=== PATIENT | female | born 1965 | race Caucasian/White ===

== ENCOUNTER 2018-04-25 05:22 | Day surgery (SDC) | payer BC ==
[2018-04-23 17:00] LABS: BASOPHILS % (AUTO) 0.4 % (0-1); EOSINOPHILS # (AUTO) 0.2 X10'3 (0-0.9); EOSINOPHILS % (AUTO) 1.9 % (0-6); LYMPHOCYTES % (AUTO) 19.9 % (21-51); MEAN CORPUSCULAR HEMOGLOBIN 28.6 PG (27.0-31.0); MEAN CORPUSCULAR HGB CONC 33.8 % (33.0-36.5); MEAN CORPUSCULAR VOLUME 84.7 FL (78-98); MEAN PLATELET VOLUME 9.4 FL (7.4-10.4); MONOCYTES # (AUTO) 0.5 X10'3 (0-0.9); MONOCYTES % (AUTO) 5.5 % (2-12); NEUTROPHILS # (AUTO) 7.1 X10'3 (1.8-7.7); NEUTROPHILS % (AUTO) 72.3 % (42-75); PRE OP HEMATOCRIT 37.1 % (35.0-45.0); PRE OP HEMOGLOBIN 12.6 g/dL (12.0-16.0); PRE OP PLATELET COUNT 281 X10'3 (140-440); RED BLOOD COUNT 4.39 X10'6 (4.20-5.60); RED CELL DISTRIBUTION WIDTH 13.3 % (11.5-14.5)
[2018-04-23 17:11] LABS: CLARITY,URINE SLIGHTLY CLOUDY (Clear); COLOR,URINE YELLOW (Yellow); GLUCOSE, URINE NEGATIVE (Neg); KETONES,URINE NEGATIVE (Neg); LEUKOCYTE ESTERASE ,URINE NEGATIVE (Neg); NITRITES, URINE NEGATIVE (Neg); OCCULT BLOOD,URINE NEGATIVE (Neg); PROTEIN,URINE TRACE mg/dl (Neg); UROBILINOGEN,URINE 0.2 E.U/dL (0.2-1.0)
[2018-04-23 17:11] LABS: PRE OP INR 0.9 INR; PRE OP PROTIME 9.6 SECONDS (9.0-12.0)
[2018-04-23 17:15] LABS: UA COLLECTION TYPE CLN CATCH MIDSTREAM
[2018-04-23 17:19] LABS: HYALINE CASTS 0-3 /LPF (NEGATIVE); MUCUS STRANDS MODERATE /LPF (Neg); SQUAMOUS EPITHELIAL CELL,UR FEW /LPF (FEW)
[2018-04-23 17:20] LABS: ALBUMIN 3.4 G/DL (3.4-5.0); ALBUMIN/GLOBULIN RATIO 0.9 (1.1-1.5); ALKALINE PHOSPHATASE 36 IU/L (46-116); BLOOD UREA NITROGEN 14 MG/DL (7-18); BUN/CREATININE RATIO 16.3 (6.6-38.0); CHLORIDE 104 MMOL/L (99-107); CREATININE 0.86 MG/DL (0.40-0.90); PRE OP ALT 15 U/L (30-65); PRE OP ANION GAP 9 (8-16); PRE OP AST 14 U/L (10-37); PRE OP BILIRUB, TOTAL 0.2 MG/DL (0.0-1.0); PRE OP GLUCOSE 85 MG/DL (70-104); PRE OP POTASSIUM 3.6 MMOL/L (3.4-5.1); PRE OP SODIUM 139 MMOL/L (135-145); TOTAL CARBON DIOXIDE 26.2 MMOL/L (24-32); eGFR 69 ML/MIN
[2018-04-23 17:20] LABS: BACTERIA,URINE 1+ /HPF (Neg); RBC,URINE 0-2 /HPF (0-2); WBC,URINE 0-4 /HPF (0-4)
[2018-04-24 07:22] LABS: URINE HCG NEGATIVE (NEG)
[~2018-04-25] VITALS: Ht 162.6 cm; Wt 67.4 kg
[2018-04-25] VITALS (19 sets, daily range): BP systolic 105–129; BP diastolic 59–80
[~2018-04-25 05:22] MED LIST: CRAN200C PO; CYAN250014; FLUT16SP2 BOTHNARES; GLUC-133 PO; MULT-1085 PO; POTA10TA19 PO; VITA100D6 PO
[2018-04-25] MEDS ORDERED: famotidine 20mg tablet PO ONE (05:30)
[2018-04-25] MEDS ORDERED: ceFOXitin 2 GM ADDvantage bag 100 ML IV ONE (05:30)
[2018-04-25] MEDS ORDERED: LIDOcaine 1% (10mg/ml) 2ml vial ONE (06:04)
[2018-04-25] MEDS: ringers solution, lacted 1,000 ML IV SCH ×2 (06:07→11:36)
[2018-04-25] MEDS ORDERED: epiNEPHrine 1 mg/ml inj ONE (06:47)
[2018-04-25] MEDS ORDERED: BUPIVAcaine/PF 2.5mg/ml (0.25%) 10ml vial ONE (06:48)
[2018-04-25] MEDS ORDERED: vasoPRESSIN 20 units/ml inj. ONE (06:48)
[2018-04-25] MEDS ORDERED: neomy sulf/polymyxin B sulf. GU irrigation 1ml amp IR ONE (07:10)
[2018-04-25] MEDS ORDERED: fentaNYL /PF 50mcg/ml 5ml ampule ONE (07:21)
[2018-04-25] MEDS ORDERED: midazolam 2 mg/2 ml injection ONE (07:21)
[2018-04-25] MEDS ORDERED: glycopyrrolate 0.2mg/ml inj ONE (07:25)
[2018-04-25] MEDS ORDERED: ondansetron/PF 4mg/2ml inj ONE (07:25)
[2018-04-25] MEDS ORDERED: neostigmine methylsulfate 1 MG/ML 10ml vial ONE (07:25)
[2018-04-25] MEDS ORDERED: sevoflurane 250ml liquid IH ONE (07:25)
[2018-04-25] MEDS ORDERED: dexamethasone sod phosphate 4mg/ml inj. ONE (07:38)
[2018-04-25] MEDS ORDERED: LIDOcaine 2% (20mg/ml) 5ml vial ONE (07:42)
[2018-04-25] MEDS ORDERED: rocuronium 10mg/ml inj IV ONE ×2 (07:42→09:24)
[2018-04-25] MEDS ORDERED: propofol inj 20 ML IV ONE (07:42)
[2018-04-25] MEDS ORDERED: ringers solution, lacted 1,000 ML IV SCH (08:08)
[2018-04-25] MEDS ORDERED: meperidine/PF 25mg/ml syringe IV PRN ×3 (08:10)
[2018-04-25] MEDS ORDERED: morphine 4 MG/ML inj SYRINge IV PRN ×2 (08:10)
[2018-04-25] MEDS ORDERED: ondansetron/PF 4mg/2ml inj IV PRN ×2 (08:10→09:40)
[2018-04-25] MEDS ORDERED: proCHLORperazine 10 MG/2 ml inj IV PRN (08:10)
[2018-04-25] MEDS ORDERED: normal saline 500ml IV soln 500 ML IV PRN (09:40)
[2018-04-25] MEDS ORDERED: diphenhydrAMINE 50 mg/ml inj IV PRN (09:40)
[2018-04-25] MEDS ORDERED: HYDROcodone/acetaminophen 10/325mg tab PO PRN (09:40)
[2018-04-25] MEDS ORDERED: metoclopramide 5 mg/ml inj IV PRN (09:40)
[2018-04-25] MEDS ORDERED: LORazepam 2 mg/ml vial IV PRN (09:40)
[2018-04-25] MEDS ORDERED: mag hydrox/Alum hydrox/simeth 30ml oral suspension PO PRN (09:40)
[2018-04-25] MEDS ORDERED: temazepam 15mg capsule PO PRN (09:40)
[2018-04-25] MEDS ORDERED: meperidine/PF 50mg/ml syringe ONE (09:43)
[2018-04-25] MEDS: ketorolac trometh. 30mg/ml inj. IV PRN ×2 (11:42→17:48)
[2018-04-25] MEDS: simethicone 80mg chew tab PO SCH ×2 (12:22→17:48)
[2018-04-25] MEDS: HYDROcodone/acetaminophen 10/325mg tab PO PRN ×2 (12:24→22:08)
[2018-04-25] MEDS: normal saline 1000ml 1,000 ML IV SCH (17:37)
[2018-04-25] MEDS: docusate sod 100mg capsule PO SCH (19:53)
[2018-04-26] VITALS: BP 116/66
[2018-04-26] MEDS: ketorolac trometh. 30mg/ml inj. IV PRN (01:48)
[2018-04-26] MEDS: ringers solution, lacted 1,000 ML IV SCH ×2 (02:56→09:17)
[2018-04-26] MEDS: normal saline 1000ml 1,000 ML IV SCH (03:14)
[2018-04-26 05:18] LABS: BASOPHILS # (AUTO) 0.1 X10'3 (0-0.2); BASOPHILS % (AUTO) 1.1 % (0-1); EOSINOPHILS # (AUTO) 0.1 X10'3 (0-0.9); EOSINOPHILS % (AUTO) 1.1 % (0-6); HEMATOCRIT 31.7 % (35.0-45.0); HEMOGLOBIN 10.9 g/dl (12.0-16.0); LYMPHOCYTES # (AUTO) 1.8 X10'3 (1.1-4.8); LYMPHOCYTES % (AUTO) 17.2 % (21-51); MEAN CORPUSCULAR HEMOGLOBIN 28.8 PG (27.0-31.0); MEAN CORPUSCULAR HGB CONC 34.4 % (33.0-36.5); MEAN CORPUSCULAR VOLUME 83.7 FL (78-98); MEAN PLATELET VOLUME 9.2 FL (7.4-10.4); MONOCYTES # (AUTO) 0.9 X10'3 (0-0.9); MONOCYTES % (AUTO) 8.6 % (2-12); NEUTROPHILS # (AUTO) 7.4 X10'3 (1.8-7.7); PLATELET COUNT 207 X10'3 (140-440); RED BLOOD COUNT 3.78 X10'6 (4.20-5.60); RED CELL DISTRIBUTION WIDTH 13.2 % (11.5-14.5); WHITE BLOOD COUNT 10.3 X10'3 (4.5-11.0)
[2018-04-26 05:35] LABS: ALBUMIN 2.5 G/DL (3.4-5.0); ANION GAP 9 (8-16); BLOOD UREA NITROGEN 10 MG/DL (7-18); BUN/CREATININE RATIO 11.6 (6.6-38.0); CALCIUM 7.3 MG/DL (8.5-10.1); CHLORIDE 107 MMOL/L (99-107); CREATININE 0.86 MG/DL (0.40-0.90); GLUCOSE 99 MG/DL (70-104); POTASSIUM 3.5 MMOL/L (3.5-5.1); SODIUM 139 MMOL/L (135-145); TOTAL CARBON DIOXIDE 23.2 MMOL/L (24-32); eGFR 69 ML/MIN
[2018-04-26 07:19] VITALS: BP 109/61
[2018-04-26] MEDS ORDERED: enoxaparin 40mg/0.4ml syringe SQ SCH (08:00)
[2018-04-26] MEDS: simethicone 80mg chew tab PO SCH (08:00)
[2018-04-26] MEDS: docusate sod 100mg capsule PO SCH (09:21)
== END 2018-04-26 10:49 | disposition home or self-care (01) ==
LOC: PAS 05:22 → SUR 3N 11:20 → PAS 04-26 10:49
PROVIDERS: ATTEND Obstetrics & Gynecology Obstetrics
DX: D25.1 Intramural leiomyoma of uterus (principal); N87.9 Dysplasia of cervix uteri, unspecified; N80.0 Endometriosis of uterus; N85.8 Other specified noninflammatory disorders of uterus; I71.2 Thoracic aortic aneurysm, without rupture; Z98.890 Other specified postprocedural states; Z79.899 Other long term (current) drug therapy
CPT/HCPCS: 36415; 58554; 71046; 71250; 80048; 80053; 81001; 81025; 85025; 85610; 85730; 86885; 86900; 86901; 93005; A4315; J0171; J0694; J1100; J1885; J2001; J2175; J2250; J2405; J2704; J2710; J3010; J3490; J7030; J7120; A7000